=== PATIENT | male | born 1990 | race Caucasian/White ===

== ENCOUNTER → 2018-05-13 | Outpatient (CLI) | payer OTHER | LOC: M.RAD 11:55 | DX: S89.92XA Unspecified injury of left lower leg, initial encounter (principal); X58.XXXA Exposure to other specified factors, initial encounter; Y93.89 Activity, other specified; Y92.89 Other specified places as the place of occurrence of the external cause; Y99.8 Other external cause status ==

== ENCOUNTER → 2018-06-24 | Outpatient (CLI) | payer OTHER | LOC: M.ULTRA 09:56 | DX: R74.8 Abnormal levels of other serum enzymes (principal); K76.0 Fatty (change of) liver, not elsewhere classified ==

== ENCOUNTER 2021-01-06 01:25 | Observation (INO) | payer OTHER ==
[~2021-01-06] VITALS: Ht 177.8 cm; Wt 120.2 kg
[2021-01-06 01:29] VITALS: BP 130/92
[2021-01-06 02:08] LABS: ABSOLUTE BASOPHILS 0.1 thou/uL (0.0-0.2); ABSOLUTE EOSINOPHILS 0.2 thou/uL (0.0-0.7); ABSOLUTE LYMPHOCYTES 1.9 thou/uL (0.8-5.3); ABSOLUTE MONOCYTES 0.9 thou/uL (0.0-1.2); ABSOLUTE NEUTROPHILS 13.4 thou/uL (1.6-8.1); BASOPHILS 0.4 %; EOSINOPHILS 1.3 %; HEMATOCRIT 57.4 % (42.0-52.0); HEMOGLOBIN 19.8 gm/dL (14.0-18.0); LYMPHOCYTES 11.5 %; MCH 30.6 pg (26.0-34.0); MCHC 34.5 g/dL (28.0-37.0); MCV 88.7 fL (80.0-100.0); MONOCYTES 5.6 %; MPV 9.5 fl. (7.2-11.1); NUCLEATED RBCS 0 /100WBC; PLATELET COUNT* 397 thou/uL (150-400); POLYS 81.2 %; RBC 6.48 mil/uL (4.50-6.00); RDW-CV 13.9 % (10.5-14.5); WBC 16.5 thou/uL (4.0-11.0)
[2021-01-06 02:11] LABS: CALCIUM 9.4 mg/dL (8.5-10.1); CREATININE 1.2 mg/dL (0.6-1.3); POTASSIUM 4.6 mmol/L (3.5-5.1)
[2021-01-06 02:15] LABS: ALBUMIN 4.1 g/dL (3.4-5.0); TOTAL BILIRUBIN 0.9 mg/dL (<0.1-1.0); TOTAL PROTEIN 9.1 g/dL (6.4-8.2)
[2021-01-06 03:08] LABS: ICTOTEST (BILI CONFIRMATORY) Negative (Negative); URINE BILIRUBIN 1+ (Negative); URINE BLOOD NEGATIVE (Negative); URINE CLARITY CLEAR; URINE COLOR YELLOW; URINE GLUCOSE-RANDOM NEGATIVE (Negative); URINE KETONES NEGATIVE (Negative); URINE LEUKOCYTES-REFLEX NEGATIVE (Negative); URINE NITRITE-REFLEX NEGATIVE (Negative); URINE PROTEIN TRACE (Negative); URINE SPECIFIC GRAVITY >= 1.030 (1.005-1.030); URINE UROBILINOGEN 0.2 E.U./dl (0.2-1.0)
[2021-01-06 07:48] VITALS: BP 130/85
[2021-01-06 13:15] VITALS: BP 147/96
[2021-01-06 17:08] VITALS: BP 132/82
--- NOTE | 2021-01-06 17:09 | NUR ---
PT UP FROM ED THIS AM DENIES PAIN MORE ACID REFLUX INDIGESTION TYPE OF SYMPTOMS GIVEN ZOFRAN X2 TODAY GOING TO TRY FULL LIQUIDS, CLEAR LIQUIDS PT HAD DIARRHEA AFTER BUT NO PAIN LAC RUNNING FLUIDS AT 150ML/H ON SECOND BAG NOW UP AD MYESHA CALL LIGHT IN REACH PLAN FOR DC TOMORROW AND OUTPATIENT SERVICES TO HELP
[2021-01-06 19:44] VITALS: BP 111/76
[2021-01-07 00:35] VITALS: BP 127/79
[2021-01-07 03:06] LABS: GLYCOHEMOGLOBIN (HGB A1C) 5.3 % (4.8-5.6)
--- NOTE | 2021-01-07 04:26 | NUR ---
PT A&OX4, VSS ON ROOM AIR, LAST BAG OF IV FLUIDS ORDERED INFUSING, MED/SURG STATUS. PAIN MED REQUESTED FOR BACK PAIN AND GIVEN ORDERED. PT SLEEPING WELL. WILL CONTINUE TO MONITOR.
[2021-01-07 04:43] LABS: HEMATOCRIT 41.9 % (42.0-52.0); MCH 30.8 pg (26.0-34.0); MCHC 34.7 g/dL (28.0-37.0); MCV 88.7 fL (80.0-100.0); MPV 9.6 fl. (7.2-11.1); RBC 4.73 mil/uL (4.50-6.00); RDW-CV 13.3 % (10.5-14.5); WBC 7.9 thou/uL (4.0-11.0)
[2021-01-07 04:57] LABS: HEMOGLOBIN 14.6 gm/dL (14.0-18.0)
[2021-01-07 04:58] LABS: CALCIUM 8.5 mg/dL (8.5-10.1); CREATININE 1.1 mg/dL (0.6-1.3); MAGNESIUM 1.9 mg/dL (1.8-2.4); POTASSIUM 3.9 mmol/L (3.5-5.1); TOTAL BILIRUBIN 0.7 mg/dL (<0.1-1.0); TOTAL PROTEIN 6.2 g/dL (6.4-8.2)
[2021-01-07] MEDS ORDERED: PHENERGAN 25 MG25 M1 PO (09:37)
[2021-01-07 10:27] VITALS: BP 127/79
--- NOTE | 2021-01-07 10:49 | NUR ---
PT DISCHARGED HOME TO FOLLOW UP OUTPATIENT FOR BIOPSY OF 11TH RIB LESION RIGHT NO CONCERNS SENT WITH PHENERGAN FOR NAUSEA
== END 2021-01-07 10:51 | disposition home or self-care (01) ==
LOC: M.ERS 01:25 → M.2W 05:27 → M.TBA-ER 05:27 → M.2W 08:07
PROVIDERS: Personal Emergency Response Attendant; ADMIT Internal Medicine; ATTEND Internal Medicine
DX: A05.8 Other specified bacterial foodborne intoxications (principal); Z20.822 Contact with and (suspected) exposure to COVID-19; E86.9 Volume depletion, unspecified; R71.8 Other abnormality of red blood cells; M99.88 Other biomechanical lesions of rib cage; E66.9 Obesity, unspecified; K75.81 Nonalcoholic steatohepatitis (NASH); Z79.899 Other long term (current) drug therapy; Z68.38 Body mass index [BMI] 38.0-38.9, adult

== ENCOUNTER → 2021-01-20 | Outpatient (CLI) | payer OTHER ==
[~2021-01-20] MED LIST: PHENERGAN 25 MG25 M1 PO
== END ==
LOC: M.NUC 01-13 13:31
PROVIDERS: ATTEND Family Medicine
DX: M89.9 Disorder of bone, unspecified (principal)

== ENCOUNTER → 2021-02-28 | Day surgery (SDC) | payer OTHER ==
[~2021-02-28] MED LIST changes: +IBUPROFEN 200200 M1 PO; +NORCO5 PO
--- NOTE | ~2021-02-28 | OP ---
[facility] [address] [place] [address] OPERATIVE REPORT Name: RANDALL BLACKWELL Room: [facility] M.R.#: [id number] Admission: 02/28/21 Attend Phys: Miguel Martinez Discharge: Date of : 89 Report #: [id number] THIS REPORT FOR: cc: Baljinder Bello Vincent R. DO Patterson,Miguel Price MD ~ DOC #: [id number] Miguel Martinez MD DATE OF SURGERY: 02/28/2021 PREOPERATIVE DIAGNOSIS: Bilateral inguinal hernias. POSTOPERATIVE DIAGNOSIS: Bilateral inguinal hernias. OPERATION: Laparoscopic repair of bilateral inguinal hernias with mesh. SURGEON: Miguel Martinez MD ANESTHESIA: General. ESTIMATED BLOOD LOSS: Minimal. SPECIMENS: None. DESCRIPTION OF PROCEDURE: After informed consent was obtained, the patient was brought to the operating room and placed supine. SCDs were placed and working. Preoperative antibiotics were administered. General anesthesia was induced. Abdomen was prepped and draped in the usual sterile fashion. A 10 mm incision was made at the umbilicus. Fascia was incised and the trocar was placed. Pneumoperitoneum was established. Left and right lower quadrant 5 mm trocars were placed. The peritoneum at the right ASIS was scored. Peritoneum was then incised and reflected inferiorly. This allowed visualization of the pubic bone and the cord structures. Cord structures were protected at all times. I was able to dissect out a direct hernia sac. I then inserted a large Bard 3DMax mesh. It was tacked to Barry's ligament with 2 absorbable tacks. I then reapproximated the peritoneum with a tacker and this covered the mesh widely. Attention was then directed to the left side. Again, the peritoneum at the left ASIS was scored. Peritoneum was incised and reflected inferiorly. This allowed visualization of the pubic bone. He had a smaller direct hernia on this side. A medium Bard 3DMax mesh was inserted on the left side. The peritoneum was then sutured closed with a running 2-0 V-Loc suture. The ports were then removed under direct vision. The fascia was closed with a [id number] 0 Vicryl. Skin was closed with 4-0 Monocryl. Incisions were dressed with Steri-Strips. COMPLICATIONS: [place] [address] OPERATIVE REPORT Name: RANDALL BLACKWELL Room: [facility]#: [id number] Admission: 02/28/21 Attend Phys: Miguel Martinez Discharge: Date of : 89 Report #: [id number] DISPOSITION: The patient was taken to recovery in satisfactory condition. MD RADHA Zarate/MAIKEL By: 1202 [id number] Martinez MD /gaurav
== END | disposition home or self-care (01) ==
LOC: M.SUR 06:22
PROVIDERS: ATTEND Surgery
DX: K40.20 Bilateral inguinal hernia, without obstruction or gangrene, not specified as recurrent (principal); R10.9 Unspecified abdominal pain; Z98.890 Other specified postprocedural states; Z79.899 Other long term (current) drug therapy; Z88.8 Allergy status to other drugs, medicaments and biological substances; Z20.822 Contact with and (suspected) exposure to COVID-19

== ENCOUNTER → 2021-04-11 | Outpatient (CLI) | payer OTHER | LOC: M.ULTRA 09:00 | PROVIDERS: ATTEND Specialist | DX: K76.0 Fatty (change of) liver, not elsewhere classified (principal); R10.10 Upper abdominal pain, unspecified; R11.2 Nausea with vomiting, unspecified; R19.7 Diarrhea, unspecified ==